=== PATIENT | male | born 1960 | race Caucasian/White ===

== ENCOUNTER 2018-05-24 05:56 | Day surgery (SDC) | payer MEDICAID ==
[~2018-05-24] VITALS: Ht 170.2 cm; Wt 95.3 kg
[~2018-05-24 05:56] MED LIST: ALLO100T PO; CHOL500010 PO; FERR325T6 PO; GEMF600T4 PO; HYDR-4009 PO; LACTATED RINGERS 1,000 ML IV SCH; LOSA50TA20 PO; PANT40TA4 PO; RANI150T43 PO; SIMV40TA5 PO
[2018-05-24 06:52] LABS: CLARITY URINE CLEAR (CLEAR); COLOR URINE YELLOW (YELLOW); KETONES URINE NEGATIVE (NEGATIVE); LEUKOCYTE ESTERASE URINE NEGATIVE (NEGATIVE); NITRITE URINE NEGATIVE (NEGATIVE); OCCULT BLOOD URINE NEGATIVE (NEGATIVE); PROTEIN URINE NEGATIVE (NEGATIVE); SPECIFIC GRAVITY URINE 1.019 (1.005-1.030); UROBILINOGEN URINE 0.2 E.U./dL (0.2-1.0)
[2018-05-24] MEDS ORDERED: GLYCOPYRROLATE 0.2 MG/ML 2ML VIAL ONE (07:40)
[2018-05-24] MEDS ORDERED: FENTANYL CITRATE/PF 50MCG/ML 2ML VIAL ONE ×2 (07:40→08:13)
[2018-05-24] MEDS ORDERED: PROPOFOL 200MG/20ML VIAL IV ONE (07:40)
[2018-05-24] MEDS ORDERED: MIDAZOLAM HCL 2 MG/2 ML VIAL ONE (07:40)
[2018-05-24] MEDS ORDERED: ONDANSETRON HCL 4MG/2ML INJ ONE (07:41)
[2018-05-24] MEDS ORDERED: SUCCINYLCHOLINE CHLORIDE 200MG/10ML IV ONE (07:41)
[2018-05-24] MEDS ORDERED: EPHEDRINE SULFATE 50MG/ML VIAL ONE (07:41)
[2018-05-24] MEDS ORDERED: LIDOCAINE HCL/PF 1% 10 MG/ML 5ML VIAL ONE (07:41)
[2018-05-24] MEDS ORDERED: METOCLOPRAMIDE HCL 10MG/2ML VIAL ONE (07:41)
[2018-05-24] MEDS ORDERED: SODIUM CHLORIDE 0.9% 1,000 ML IV ONE (08:02)
[2018-05-24] MEDS ORDERED: FENTANYL CITRATE/PF 50MCG/ML 5ML VIAL ONE (08:12)
[2018-05-24] MEDS ORDERED: ONDANSETRON HCL 4MG/2ML INJ IV PRN (08:15)
[2018-05-24] MEDS ORDERED: HYDROMORPHONE HCL/PF 2MG/ML CPJ IV PRN (08:15)
[2018-05-24] MEDS ORDERED: MEPERIDINE HCL/PF 25MG/ML CPJ IV PRN (08:15)
[2018-05-24] MEDS ORDERED: MORPHINE SULFATE 4 MG/ML CPJ (NOT FOR IM USE) IV PRN (08:15)
== END 2018-05-24 10:35 | disposition home or self-care (01) ==
LOC: OR 05:56
PROVIDERS: ATTEND Urology
DX: C67.0 Malignant neoplasm of trigone of bladder (principal); Z87.891 Personal history of nicotine dependence
CPT/HCPCS: 52234; 81003; 88305; J0330; J2250; J2405; J2765; J3010; J3490; J2704